=== PATIENT | male | born 1955 | race Caucasian/White ===

== ENCOUNTER → 2017-02-04 | Outpatient (CLI) | payer BC ==
[~2017-02-04] MED LIST: HYDR-3874 PO; LORA-877 PO; MELO-170 PO; NITR-68 PO; RANI150T15 PO; TAMS0.4C98 PO
--- NOTE | 2017-02-04 15:39 | Diagnostic Imaging Report ---
EXAMINATION: Supine abdomen at 2:16 p.m. INDICATION: Left nephrolithiasis. COMPARISON: There are no prior studies available for comparison. FINDINGS: There is a 6 mm calcification overlying the inferior pole of the left kidney and a 7.4 mm calcification along the inferior pole of the right kidney. I suspect these calcifications are intrarenal. There is no other sign of nephrolithiasis, but both kidneys are partially obscured by bowel gas and fecal material. There also appear to be a few phleboliths within the pelvis. If further study is desired, then CT would be recommended. The bowel gas pattern is nonspecific. There is no acute abnormality identified. There is no mass or organomegaly appreciated. The osseous structures are intact. IMPRESSION: 1. The calcifications overlying the kidneys are most likely within the kidneys. If further study is desired, then CT would be recommended. 2. There is no acute abnormality of the abdomen or pelvis. Dictated by: Dictated on workstation # [id number]
== END ==
LOC: RAD 13:46
PROVIDERS: ATTEND Urology
DX: N20.0 Calculus of kidney (principal)
CPT/HCPCS: 74000

== ENCOUNTER 2017-02-05 07:29 | Outpatient (CLI) | payer BC ==
[~2017-02-05] VITALS: Ht 180.3 cm; Wt 104.3 kg
[2017-02-05] MEDS ORDERED: MELO-170 PO (16:21)
[2017-02-05] MEDS ORDERED: RANI150T15 PO (16:21)
== END 2017-02-05 16:29 ==
LOC: PREOP 07:29
PROVIDERS: ATTEND Urology
DX: Z01.818 Encounter for other preprocedural examination (principal); N20.1 Calculus of ureter

== ENCOUNTER 2017-02-23 05:30 | Outpatient (CLI) | payer BC ==
[~2017-02-23] VITALS: Ht 180.3 cm; Wt 104.3 kg
[~2017-02-23 05:30] MED LIST changes: -HYDR-3874 PO; -LORA-877 PO; -NITR-68 PO; -TAMS0.4C98 PO
[2017-02-23] MEDS ORDERED: LORA-877 PO (09:32)
== END 2017-02-23 09:45 ==
LOC: PREOP 05:30
PROVIDERS: ATTEND Urology
DX: Z01.818 Encounter for other preprocedural examination (principal); N20.0 Calculus of kidney

== ENCOUNTER 2017-02-25 06:25 | Day surgery (SDC) | payer BC ==
[~2017-02-25] VITALS: Ht 180.3 cm; Wt 104.3 kg
[~2017-02-25 06:25] MED LIST changes: +LORA-877 PO
[2017-02-25] MEDS ORDERED: LACTATED RINGERS 1,000 ML IV PRN (06:39)
[2017-02-25] MEDS ORDERED: FUROSEMIDE 40 MG/4 ML INJ (LASIX) ONE (06:43)
[2017-02-25] MEDS ORDERED: MIDAZOLAM 2 MG/2 ML (VERSED) VIAL ONE (06:43)
[2017-02-25] MEDS ORDERED: ONDANSETRON 4 MG/2 ML (SDV) Z0FRAN ONE (06:43)
[2017-02-25] MEDS ORDERED: fentaNYL INJECTION 100 MCG/2 ML AMP ONE (06:43)
[2017-02-25] MEDS ORDERED: proPOfol 200 MG/20 ML (DIPRIVAN) VIAL IV ONE (06:43)
[2017-02-25] MEDS ORDERED: DEXAMETHASONE 10 MG/ML (DECADRON) 1 ML VIAL ONE (06:43)
[2017-02-25] MEDS ORDERED: LIDOCAINE PF 2% 5 ML (XYLOCAINE) VIAL ONE (06:43)
[2017-02-25 06:45] VITALS: BP 140/103
[2017-02-25] MEDS ORDERED: cefTRIAXone 1 GM/NS 50 ML IVPB IV ONE ×2 (07:00)
--- NOTE | 2017-02-25 07:28 | Progress Note-Pre Operative ---
Pre-Operative Progress Note H&P Reviewed The H&P was reviewed, patient examined and no changes noted. Date Seen by Provider: Feb 25, 2017 Time Seen by Provider: 07:27 Date H&P Reviewed: Feb 25, 2017 Time H&P Reviewed: 07:27 Pre-Operative Diagnosis: BILATERAL RENAL STONES CRESCENCIO FORD MD Feb 25, 2017 7:28 am
--- NOTE | 2017-02-25 07:42 | Progress Note-Post Operative ---
Post-Operative Progess Note Surgeon (s)/Skilled Trades Teacher (s) Surgeon CRESCENCIO FORD MD Skilled Trades Teacher: N/A Pre-Operative Diagnosis BILATERAL RENAL STONES Post-Operative Diagnosis SAME Procedure & Operative Findings Date of Procedure 02/25/17 Procedure Performed/Findings RT ESWL Anesthesia Type GENERAL Estimated Blood Loss Estimated blood loss (mL): N/A Specimens/Packing Specimens Removed N/A Packing: N/A CRESCENCIO FORD MD Feb 25, 2017 7:42 am
--- NOTE | 2017-02-25 07:45 | Discharge Inst-Urology ---
Discharge Inst-Urology Discharge Medications New, Converted, or Re-newed RX: RX on Chart Patient Instructions/Follow Up Plan Please make appointment to been seen in office Friday 03/09, KUB prior to it KUB on way home Post ESWL instructions Increase oral fluids for 48 hours and then as needed. Diet and Activity as tolerated. If questions or concerns contact your physician Or seek help at emergency department. CRESCENCIO FORD MD Feb 25, 2017 7:45 am
--- NOTE | 2017-02-25 08:07 | Diagnostic Imaging Report ---
INDICATION: Stones COMPARISON: 02/04 FINDINGS: Largest stone in the left lower pole calyx measured 6.3 mm not substantially changed. The largest right renal calculus overlies the lower pole measuring 6.2 mm unchanged. Pelvic phleboliths unchanged. IMPRESSION: Bilateral nephrolithiasis not significantly changed in radiographic appearance from prior Dictated by: Dictated on workstation # [id number]
[2017-02-25] MEDS ORDERED: TAMS0.4C98 PO (08:33)
[2017-02-25] MEDS ORDERED: HYDR-3874 PO (08:33)
[2017-02-25] MEDS ORDERED: NITR-68 PO (08:33)
[2017-02-25 09:10] VITALS: BP 121/81
[2017-02-25 09:40] VITALS: BP 110/82
[2017-02-25] MEDS ORDERED: SEVOFLURANE (ULTANE) 15 ML INHAL SOLN ONE (10:04)
--- NOTE | 2017-02-25 19:37 | Diagnostic Imaging Report ---
KUB. COMPARISON: 02/25/2017. INDICATION: Post lithotripsy for stones. FINDINGS: There are bilateral calcifications projecting over the kidneys probably representing kidney stones. Calcifications also are seen in the pelvis which may relate to phleboliths. The calcifications in the right flank are up to 6 mm and up to 5 mm in the lower pole of each kidney. IMPRESSION: Findings suggestive of bilateral kidney stones. Pelvic calcifications are likely phleboliths. Dictated by: Dictated on workstation # [id number]
--- NOTE | 2017-03-10 16:59 | OPERATIVE REPORT ---
DATE OF SERVICE: 02/25/2017 PREOPERATIVE DIAGNOSIS: Right renal stone. POSTOPERATIVE DIAGNOSIS: Right renal stone. PROCEDURE PERFORMED: Right ESWL. SURGEON: CRESCENCIO FORD MD ANESTHESIA: General. COMPLICATIONS: None. PROCEDURE: Under satisfactory general anesthesia with the patient in the supine position on the ESWL table, the right renal stone was localized and shocks were delivered at kV of 5. Total of 2000 shocks completely fragmented the stone. The patient received 40 mg of Lasix and 30 mg of Toradol IV. He tolerated the procedure and anesthesia well and was sent to the recovery room in stable condition. PLAN: Left ESWL in 2 weeks if clears the right side. Job ID: [id number] DocumentID: [id number] Dictated Date: 03/10/2017 08:33:31 Applications System Analyst Date: 03/10/2017 13:16:44 Dictated By: CRESCENCIO FORD MD
== END 2017-02-25 10:12 | disposition home or self-care (01) ==
LOC: SDC 06:25
PROVIDERS: ATTEND Urology
DX: N20.0 Calculus of kidney (principal); Z11.2 Encounter for screening for other bacterial diseases; E03.9 Hypothyroidism, unspecified; N40.0 Benign prostatic hyperplasia without lower urinary tract symptoms; K21.9 Gastro-esophageal reflux disease without esophagitis; E66.01 Morbid (severe) obesity due to excess calories; Z68.32 Body mass index [BMI] 32.0-32.9, adult
CPT/HCPCS: 74000; 87081

== ENCOUNTER 2017-03-09 13:40 | Outpatient (CLI) | payer BC ==
[~2017-03-09] VITALS: Ht 180.3 cm; Wt 104.3 kg
== END 2017-03-09 14:49 ==
LOC: PREOP 13:40
PROVIDERS: ATTEND Urology
DX: Z01.818 Encounter for other preprocedural examination (principal); N20.0 Calculus of kidney

== ENCOUNTER → 2017-03-09 | Outpatient (CLI) | payer BC ==
[~2017-03-09] MED LIST changes: +HYDR-3874 PO; +NITR-68 PO; +TAMS0.4C98 PO
--- NOTE | 2017-03-09 14:24 | Diagnostic Imaging Report ---
INDICATION: Nephrolithiasis EXAMINATION: KUB at 1:36 PM There is a 5 mm stone projecting over the lower pole of left kidney. There is a 6 mm stone projecting over the upper pole of the the right kidney and a 5 mm stone projecting over the lower pole of the right kidney. Ureters are clear. IMPRESSION: Bilateral nephrolithiasis. Dictated by: Dictated on workstation # [id number]
== END ==
LOC: RAD 12:59
PROVIDERS: ATTEND Urology
DX: N20.0 Calculus of kidney (principal)
CPT/HCPCS: 74000

== ENCOUNTER 2017-03-10 07:33 | Day surgery (SDC) | payer BC ==
[~2017-03-10] VITALS: Ht 180.3 cm; Wt 104.3 kg
--- NOTE | 2017-03-10 08:00 | Progress Note-Pre Operative ---
Pre-Operative Progress Note H&P Reviewed The H&P was reviewed, patient examined and no changes noted. Date Seen by Provider: Mar 10, 2017 Time Seen by Provider: 07:59 Date H&P Reviewed: Mar 10, 2017 Time H&P Reviewed: 07:59 Pre-Operative Diagnosis: LT RENAL STONE CRESCENCIO FORD MD Mar 10, 2017 7:59 am
--- NOTE | 2017-03-10 08:00 | Diagnostic Imaging Report ---
KUB. INDICATION: Left-sided stones. FINDINGS: There are bilateral flank calcifications seen up to 8 mm on the right side and up to 7 mm on the left side projecting over the lower pole of each kidney. These are likely related to kidney stones. Pelvic calcifications are probably phleboliths. IMPRESSION: Flank calcifications are suggestive of lower pole kidney stones bilaterally. Dictated by: Dictated on workstation # [id number]
[2017-03-10 08:05] VITALS: BP 150/92
[2017-03-10] MEDS ORDERED: CATHETER FLUSH 10 ML SYR IV PRN (08:15)
[2017-03-10] MEDS ORDERED: cefTRIAXone 1 GM/NS 50 ML IVPB IV ONE ×2 (08:15)
--- NOTE | 2017-03-10 08:25 | Discharge Inst-Urology ---
Discharge Inst-Urology Discharge Medications New, Converted, or Re-newed RX: RX on Chart Patient Instructions/Follow Up Plan Please make appointment to been seen Friday 03/23, VARGAS prior to it VARGAS on way home Post ESWL instructions Increase oral fluids for 48 hours and then as needed. Diet and Activity as tolerated. If questions or concerns contact your physician Or seek help at emergency department. CRESCENCIO FORD MD Mar 10, 2017 8:25 am
[2017-03-10] MEDS ORDERED: LACTATED RINGERS 1,000 ML IV PRN (08:55)
[2017-03-10] MEDS ORDERED: ONDANSETRON 4 MG/2 ML (SDV) Z0FRAN ONE (09:57)
[2017-03-10] MEDS ORDERED: FUROSEMIDE 40 MG/4 ML INJ (LASIX) ONE (09:57)
[2017-03-10] MEDS ORDERED: proPOfol 200 MG/20 ML (DIPRIVAN) VIAL IV ONE (09:57)
[2017-03-10] MEDS ORDERED: SEVOFLURANE (ULTANE) 15 ML INHAL SOLN ONE (09:57)
[2017-03-10] MEDS ORDERED: LACTATED RINGERS 1,000 ML IV ONE (09:57)
[2017-03-10] MEDS ORDERED: MIDAZOLAM 2 MG/2 ML (VERSED) VIAL ONE (09:58)
[2017-03-10] MEDS ORDERED: fentaNYL INJECTION 100 MCG/2 ML AMP ONE (09:58)
--- NOTE | 2017-03-10 11:04 | Progress Note-Post Operative ---
Post-Operative Progess Note Surgeon (s)/Picture Framer (s) Surgeon CRESCENCIO FORD MD Picture Framer: N/A Pre-Operative Diagnosis LT RENAL STONE Post-Operative Diagnosis SAME Procedure & Operative Findings Date of Procedure 03/10/17 Procedure Performed/Findings LT ESWL Anesthesia Type GENERAL Estimated Blood Loss Estimated blood loss (mL): N/A Specimens/Packing Specimens Removed N/A Packing: N/A CRESCENCIO FROD MD Mar 10, 2017 11:04 am
[2017-03-10] MEDS ORDERED: ONDANSETRON 4 MG/2 ML (SDV) Z0FRAN IVP PRN (11:45)
[2017-03-10] MEDS ORDERED: KETOROLAC 30 MG/ML VIAL IVP ONE (11:45)
[2017-03-10 12:15] VITALS: BP 129/111
[2017-03-10 12:45] VITALS: BP 138/84
[2017-03-10 12:50] VITALS: BP 138/84
[2017-03-10 13:15] VITALS: BP 132/81
[2017-03-10 13:30] VITALS: BP 132/81
--- NOTE | 2017-03-10 13:47 | Diagnostic Imaging Report ---
INDICATION: Status post ESWL. COMPARISON: Earlier same day. FINDINGS: Single frontal radiographic view of the abdomen was obtained and again demonstrates bilateral nephrolithiasis. There has been no significant interval change on the left. No new extraosseous calcifications are seen. No unexpected radiopaque foreign bodies are identified. Small bowel loops are nondistended. Bony structures show no gross acute abnormalities. IMPRESSION: 1. Persistent bilateral nephrolithiasis. Dictated by: Dictated on workstation # [id number]
--- NOTE | 2017-03-11 00:01 | OPERATIVE REPORT ---
DATE OF SERVICE: 03/10/2017 PREOPERATIVE DIAGNOSIS: Left renal stone. POSTOPERATIVE DIAGNOSIS: Left renal stone. OPERATION PERFORMED: Left ESWL. SURGEON: CRESCENCIO FORD MD ANESTHESIA: General. COMPLICATIONS: None. PROCEDURE: Under satisfactory general anesthesia, the patient was in the supine position on the ESWL table. The left-sided stone was localized. Shocks were delivered at a of 5, total of 2000 shocks completely fragmented the stone. The patient has received 40 mg of Lasix and 30 mg of Toradol IV at the end of the procedure. He tolerated the procedure and anesthesia well, was sent to recovery room in stable condition. Job ID: [id number] DocumentID: [id number] Dictated Date: 03/10/2017 11:17:18 Newspaper Editor Date: 03/11/2017 00:00:58 Dictated By: CRESCENCIO FORD MD
== END 2017-03-10 13:30 | disposition home or self-care (01) ==
LOC: SDC 07:33
PROVIDERS: ATTEND Urology
DX: N20.0 Calculus of kidney (principal); N40.0 Benign prostatic hyperplasia without lower urinary tract symptoms; E29.1 Testicular hypofunction; K21.9 Gastro-esophageal reflux disease without esophagitis; M19.91 Primary osteoarthritis, unspecified site; E66.9 Obesity, unspecified; Z68.32 Body mass index [BMI] 32.0-32.9, adult; Z79.899 Other long term (current) drug therapy
CPT/HCPCS: 74000; 87081

== ENCOUNTER → 2017-03-23 | Outpatient (CLI) | payer BC ==
--- NOTE | 2017-03-23 17:34 | Diagnostic Imaging Report ---
INDICATION: Two weeks status post left ESWL. FINDINGS: Single view of the abdomen shows faint calcification in the lower pole of the left kidney as well as a calcification in the mid right kidney which appears similar to 03/10/17 study. No ureteral stones are evident. The bowel gas pattern is within normal limits. There is no acute bony abnormality. IMPRESSION: Bilateral renal stones. Stable abdomen. Dictated by: Dictated on workstation # [id number]
== END ==
LOC: RAD 15:28
PROVIDERS: ATTEND Urology
DX: N20.0 Calculus of kidney (principal); Z98.890 Other specified postprocedural states
CPT/HCPCS: 74000

== ENCOUNTER → 2017-03-23 | Outpatient (CLI) | payer BC | LOC: LAB 16:47 | PROVIDERS: ATTEND Urology | DX: N20.0 Calculus of kidney (principal) ==

== ENCOUNTER → 2017-03-30 | Outpatient (CLI) | payer BC | LOC: RAD 09:12 | PROVIDERS: ATTEND Urology | DX: N20.0 Calculus of kidney (principal) | CPT/HCPCS: 36415; 82140; 82340; 82507; 82570; 83735; 83945; 83986; 84105; 84133; 84300; 84392; 84560 ==

== ENCOUNTER → 2018-01-21 | Outpatient (CLI) | payer BC ==
[~2018-01-21] MED LIST changes: +HYDR-3870 PO; -HYDR-3874 PO; -RANI150T15 PO; +RANI150T46 PO
--- NOTE | 2018-01-21 16:39 | Diagnostic Imaging Report ---
INDICATION: History of renal calculi. COMPARISON: 03/23/2017. FINDINGS: Single supine radiographic view of the abdomen was obtained. Small bowel loops are nondistended. There is no large collection of free intraperitoneal air. Punctate extraosseous calculus is identified projecting over the inferior pole of the right kidney and measures 3 mm. Pelvic phleboliths are also noted, bilaterally. No unexpected radiopaque foreign bodies are identified. Bony structures show no gross acute abnormalities. IMPRESSION: 1. Left-sided nephrolithiasis. 2. Nonobstructed small bowel gas pattern. Dictated by: Dictated on workstation # [id number]
== END ==
LOC: RAD 14:41
PROVIDERS: ATTEND Urology
DX: N20.0 Calculus of kidney (principal)
CPT/HCPCS: 74018

== ENCOUNTER 2018-07-23 10:25 | Outpatient (RCR) | payer BC | END 2018-10-21 | disposition home or self-care (01) | LOC: LAB 10:25 | PROVIDERS: ATTEND Urology | DX: Z87.442 Personal history of urinary calculi (principal) | CPT/HCPCS: 36415; 82140; 82340; 82507; 82570; 83735; 83945; 83986; 84105; 84133; 84300; 84392; 84560 ==

== ENCOUNTER → 2018-08-09 | Outpatient (CLI) | payer BC ==
[2018-08-09 16:45] LABS: ALBUMIN 4.3 GM/DL (3.2-4.5); BUN/CREATININE RATIO 16; CALCIUM 9.6 MG/DL (8.5-10.1); CARBON DIOXIDE 25 MMOL/L (21-32); CHLORIDE 103 MMOL/L (98-107); GFR ESTIMATED > 60; GLUCOSE 99 MG/DL (70-105); PHOSPHORUS 3.2 MG/DL (2.3-4.7); POTASSIUM 3.4 MMOL/L (3.6-5.0); SODIUM 139 MMOL/L (135-145)
== END ==
LOC: LAB 16:17
PROVIDERS: ATTEND Urology
DX: Z09 Encounter for follow-up examination after completed treatment for conditions other than malignant neoplasm (principal); Z87.442 Personal history of urinary calculi
CPT/HCPCS: 36415; 80069

== ENCOUNTER → 2018-09-20 | Outpatient (CLI) | payer BC ==
[2018-09-20 17:00] LABS: ALBUMIN 4.2 GM/DL (3.2-4.5); BILIRUBIN,TOTAL 0.4 MG/DL (0.1-1.0); CALCIUM 9.5 MG/DL (8.5-10.1); CREATININE SERUM 1.24 MG/DL (0.60-1.30); POTASSIUM 3.7 MMOL/L (3.6-5.0); TOTAL PROTEIN 7.3 GM/DL (6.4-8.2)
== END ==
LOC: LAB 16:01
PROVIDERS: ATTEND Urology
DX: N20.0 Calculus of kidney (principal); Z87.442 Personal history of urinary calculi
CPT/HCPCS: 36415; 80053

== ENCOUNTER 2020-09-28 10:43 | Outpatient (RCR) | payer BC ==
[~2020-09-28 10:43] MED LIST changes: +RANI-613 PO; -RANI150T46 PO; -TAMS0.4C98 PO; +TMSL.4C PO
--- NOTE | 2020-09-28 11:35 | Diagnostic Imaging Report ---
INDICATION: History of renal stone. TECHNIQUE: Single supine view of the abdomen 11:07 AM CORRELATION STUDY: 02/04/2019 FINDINGS: Interval increase in size of a stone inferior pole left kidney at approximately 6 mm. Additional calcification of the central aspect. Right kidney is largely obscured by overlying bowel gas and stool. No definitive calcification along expected course of ureters. Calcification of the pelvis appears unchanged likely phleboliths. IMPRESSION: 1. Interval increase in size and likely number of calcifications left kidney. Dictated by: Dictated on workstation # [id number]
== END 2020-12-27 | disposition home or self-care (01) ==
LOC: RAD 10:43
PROVIDERS: ATTEND Urology
DX: N20.0 Calculus of kidney (principal)
CPT/HCPCS: 36415; 74018; 82140; 82340; 82507; 82570; 83735; 83945; 83986; 84105; 84133; 84300; 84392; 84560

== ENCOUNTER → 2021-03-11 | Outpatient (CLI) | payer BC ==
[~2021-03-11] MED LIST changes: +ASCO500C17 PO; +ATOR10TA66 PO; +FAMO20TA5 PO; +HYDR50TA6 PO; +KETO10TA PO; +POT1TABL2 PO; +POTA10TA36 PO; +SULF1TAB38 PO; +ZINC50TA11 PO
--- NOTE | 2021-03-11 14:41 | Diagnostic Imaging Report ---
INDICATION: Kidney stone COMPARISON: 09/28/2020 FINDINGS: Single view the abdomen demonstrates no discernible calcification in either kidney or ureter. Phleboliths are seen in the pelvis. IMPRESSION: No visible left kidney stone. Dictated by: Dictated on workstation # [id number]
== END ==
LOC: RAD 13:36
PROVIDERS: ATTEND Urology
DX: N20.0 Calculus of kidney (principal)
CPT/HCPCS: 74018

== ENCOUNTER 2021-03-12 06:28 | Day surgery (SDC) | payer BC ==
[~2021-03-12] VITALS: Ht 180.3 cm; Wt 104.0 kg
[2021-03-12] VITALS (11 sets, daily range): BP systolic 115–140; BP diastolic 77–86
[~2021-03-12 06:28] MED LIST changes: -ASCO500C17 PO; -ATOR10TA66 PO; -FAMO20TA5 PO; -HYDR50TA6 PO; -KETO10TA PO; -POT1TABL2 PO; -POTA10TA36 PO; -SULF1TAB38 PO; -ZINC50TA11 PO
--- NOTE | 2021-03-12 06:56 | Progress Note-Pre Operative ---
Pre-Operative Progress Note H&P Reviewed The H&P was reviewed, patient examined and no changes noted. Date Seen by Provider: Mar 12, 2021 Time Seen by Provider: 06:56 Date H&P Reviewed: Mar 12, 2021 Time H&P Reviewed: 06:56 Pre-Operative Diagnosis: LT DISTAL URETERAL STONE CRESCENCIO FORD MD Mar 12, 2021 06:56
--- NOTE | 2021-03-12 06:57 | Progress Note-Post Operative ---
Post-Operative Progess Note Surgeon (s)/Eight Section Blower (s) Surgeon CRESCENCIO FORD MD Eight Section Blower: NONE Pre-Operative Diagnosis LT DISTAL URETERAL STONE Post-Operative Diagnosis SAME Procedure & Operative Findings Date of Procedure 03/12/21 Procedure Performed/Findings CYSTOSCOPY AND EXTRACTION OF LT DISTAL URETERAL STONE Anesthesia Type GENERAL Estimated Blood Loss Estimated blood loss (mL): NONE Specimens/Packing Specimens Removed LT URETERAL STONE Packing: NONE CRESCENCIO FORD MD Mar 12, 2021 06:57
[2021-03-12] MEDS ORDERED: WATER (STERILE) FOR INJECTION 10 ML ONE (07:01)
[2021-03-12] MEDS ORDERED: cefTRIAXone 1,000 MG VIAL ONE (07:01)
--- NOTE | 2021-03-12 07:03 | Discharge Inst-Urology ---
Discharge Inst-Urology Reconcile Patient Problems Problems Reviewed?: Yes Final Diagnosis LT DISTAL URETERAL STONE Patient Instructions/Follow Up Plan/Assessment/Instructions Please make appointment to been seen in office in 2 weeks. Stone for analysis post seen by patient, has it Increase oral fluids for 48 hours and then as needed. Diet and Activity as tolerated. If questions or concerns contact your physician Or seek help at emergency department. CRESCENCIO FORD MD Mar 12, 2021 07:03
[2021-03-12] MEDS ORDERED: cefTRIAXone 1,000 MG in WATER (STERILE) FOR INJECTION 10 ML IV ONE (07:15)
[2021-03-12] MEDS ORDERED: LACTATED RINGERS 1,000 ML IV PRN (07:15)
--- NOTE | 2021-03-12 07:32 | Diagnostic Imaging Report ---
INDICATION: Left renal stone.. TECHNIQUE: Single supine view of the abdomen 7:28 AM CORRELATION STUDY: 03/11/2021 FINDINGS: Overlying bowel gas and stool obscures detail. A few small calcified calcifications project over the inferior pole right renal silhouette. No appreciable calcification over left renal silhouette and/or expected course of ureter. Unchanged calcification of the bilateral pelvis likely vasculature. IMPRESSION: 1. Question small stones over the right inferior renal silhouette. No definitive calcification of the left renal silhouette and/or expected course of either ureter. Dictated by: Dictated on workstation # [id number]
[2021-03-12] MEDS ORDERED: ZINC50TA11 PO ×2 (08:13)
[2021-03-12] MEDS ORDERED: POTA10TA36 PO ×2 (08:14)
[2021-03-12] MEDS ORDERED: HYDR50TA6 PO ×4 (08:14→08:17)
[2021-03-12] MEDS ORDERED: ASCO500C17 PO ×2 (08:16)
[2021-03-12] MEDS ORDERED: POT1TABL2 PO ×2 (08:17)
[2021-03-12] MEDS ORDERED: FAMO20TA5 PO ×2 (08:18)
[2021-03-12] MEDS ORDERED: ATOR10TA66 PO ×2 (08:18)
[2021-03-12] MEDS ORDERED: SULF1TAB38 PO ×2 (08:50)
[2021-03-12] MEDS ORDERED: KETO10TA PO ×2 (08:53)
--- NOTE | 2021-03-12 14:48 | OPERATIVE REPORT ---
DATE OF SERVICE: 03/12/2021 PREOPERATIVE DIAGNOSIS: Left distal ureteral stone. POSTOPERATIVE DIAGNOSIS: Left distal ureteral stone. OPERATIONS PERFORMED: Cystoscopy, left ureteral stone extraction and ureteroscopy. SURGEON: Jarvis Ford MD. ANESTHESIA: General. COMPLICATIONS: None. DESCRIPTION OF PROCEDURE: Under satisfactory general anesthesia, the patient in a lithotomy position, genitalia were prepped and draped in the usual sterile fashion. Cystoscope was introduced under vision. Anterior urethra was normal. The prostate was mildly obstructing. The bladder was entered. The stone was seen protruding from the left ureteral orifice. I grasped it with a grasping forceps and with gentle manipulation, I was able to extract it in full. I went with ureteroscope over the ureter to make sure there are no further fragments or stones. I reinserted the cystoscope and emptied the bladder. The patient tolerated the procedure and anesthesia well and was sent to recovery room in a stable condition. Job ID: [id number] DocumentID: [id number] Dictated Date: 03/12/2021 09:37:11 Flare Worker Date: 03/12/2021 14:47:10 Dictated By: JARVIS FORD MD
== END 2021-03-12 10:35 | disposition home or self-care (01) ==
LOC: SDC 06:28
PROVIDERS: ATTEND Urology
DX: N20.1 Calculus of ureter (principal); N40.0 Benign prostatic hyperplasia without lower urinary tract symptoms; K21.9 Gastro-esophageal reflux disease without esophagitis; E78.5 Hyperlipidemia, unspecified; Z96.653 Presence of artificial knee joint, bilateral; Z79.899 Other long term (current) drug therapy; Z11.2 Encounter for screening for other bacterial diseases
CPT/HCPCS: 74018; 76000; 87081